=== PATIENT | female | born 1995 | race Caucasian/White ===

== ENCOUNTER 2017-05-06 08:10 | Day surgery (SDC) | payer BC ==
[~2017-05-06] VITALS: Ht 157.5 cm; Wt 62.0 kg
[2017-05-06] VITALS (15 sets, daily range): BP systolic 91–139; BP diastolic 58–86; PULSE 72–130; RESP 16–36; Ht 157.5 cm; Wt 62.0 kg
[2017-05-06] MEDS ORDERED: BUPIVACAINE 0.25%/EPI (SDV) 30 ML INJ ONE (09:19)
[2017-05-06] MEDS ORDERED: BACITRACIN/POLYMYXIN 28.35 GM OINT TOP ONE (09:20)
[2017-05-06] MEDS ORDERED: POLYMYXIN/BACITRACIN 1L IRRIG ONE (09:20)
[2017-05-06] MEDS ORDERED: LACTATED RINGER'S 1,000 ML IV SCH (09:30)
[2017-05-06] MEDS ORDERED: MIDAZOLAM 1 MG/ML 2 ML INJ ONE (10:32)
[2017-05-06] MEDS ORDERED: LIDOCAINE 2% (SDV) 5 ML INJ ONE (10:32)
[2017-05-06] MEDS ORDERED: PROPOFOL 20 ML ONE ×2 (10:32→11:05)
[2017-05-06] MEDS ORDERED: FENTAnyl 50 MCG/ML VIAL ONE (10:38)
[2017-05-06] MEDS ORDERED: CEFAZOLIN 1 GM INJ ONE (10:39)
[2017-05-06] MEDS ORDERED: BUPIVACAINE 0.5% (SDV) 30 ML INJ ONE (10:39)
[2017-05-06] MEDS ORDERED: ONDANSETRON 4 MG INJ ONE (10:45)
[2017-05-06] MEDS ORDERED: DEXAMETHASONE 4 MG/ML 1 ML INJ ONE (10:45)
[2017-05-06] MEDS ORDERED: PROCHLORPERAZINE 10 MG INJ IV PRN (11:00)
[2017-05-06] MEDS ORDERED: OXYCODONE/ACETAMINOPHEN (5/325) TAB PO PRN (11:00)
[2017-05-06] MEDS ORDERED: ONDANSETRON 4 MG INJ IV PRN (11:00)
[2017-05-06] MEDS ORDERED: DIPHENHYDRAMINE 50 MG INJ IV PRN (11:00)
[2017-05-06] MEDS ORDERED: FENTAnyl 50 MCG/ML VIAL IV PRN (11:00)
[2017-05-06] MEDS ORDERED: HYDROmorphONE (0.2 MG/ML) 10ML SYG IV PRN (11:00)
[2017-05-06] MEDS ORDERED: MEPERIDINE 25 MG INJ IV PRN (11:00)
--- NOTE | 2017-05-06 11:28 | HPN ---
Date/Time of Note Date/Time of Note DATE: 05/06/17 TIME: 11:27 Interval H&P Admission Note Pt. seen H&P reviewed: No system changes MARIZA MILAN MD May 06, 2017 11:28
[2017-05-06] MEDS ORDERED: morphine 2 MG INJ IV PRN (11:30)
[2017-05-06] MEDS ORDERED: KETOROLAC 30 MG INJ ONE (11:32)
--- NOTE | 2017-05-06 11:33 | OPR ---
Date/Time of Note Date/Time of Note DATE: 05/06/17 TIME: 11:30 Operative Report Procedure Date: May 06, 2017 Preoperative Diagnosis Left second toe flexible mallet toe Postoperative Diagnosis Left second toe flexible mallet toe Operation Performed Left second toe flexor tenotomy Surgeon: MARIZA MILAN MD Anesthesia: MAC, other (local block) Anesthesiologist: JIM HONG MD Tourniquet Time: None Estimated Blood Loss: minimal Complications: None Pt Condition Post Procedure: stable Disposition: PACU Indications Patient is a 21-year-old female who sustained a fracture of the left second dorsal aspect of the distal phalanx several years ago which healed in a mallet toe position. Patient attempted stretching exercises to obtain full extension of the toe however was able to achieve full extension and continue to have irritation and pain over the dorsum of the left second dorsal interphalangeal joint. The toe was in a flexible position and given the ongoing discomfort patient was having patient was indicated for a flexor tenotomy. Patient elected to proceed with this procedure and the operating room setting as opposed to the office setting. Operative\Procedure Findings Risk note: Patient was explained the risks and benefits of the surgery and the patient's modoc language including but not limited to infection, bleeding, injury to the blood vessels, nerves, ligaments and tendons. Patient was explained the risk of need for possible future surgery. Patient acknowledged these risk by signing surgical consent form. Procedure Description Patient was met in the preoperative holding area and the operative treatment he was marked and confirmed with the patient and consent. Patient was brought to the operative theater and placed supine on the operative table and given preoperative antibiotics and preoperative local digital block anesthesia with 0.5% Marcaine. Patient was then prepped and draped in the normal sterile fashion and a timeout was taken and all parties in the room agreed is correct patient, extremity and procedure. Incision was made on the plantar aspect of the distal interphalangeal joint with a #15 blade and flexor tendon was identified and tenotomized while bringing the toe into full extension at the DIP joint. Once the tendon was tenotomized the toe sat in a neutral position and the wound was irrigated thoroughly and 5-0 nylon suture was placed across the incision site. The toe was warm and well-perfused and pink at the end of the case. The wounds were dressed with Xeroform 4 x 4 and placed in an extended position and toes were again pink warm and well-perfused and foot was placed into a hard sole shoe. At the end of the case all sponge and needle counts were correct. Patient was brought to the PACU in stable condition. MARIZA MILAN MD May 06, 2017 11:33
--- NOTE | 2017-05-06 19:00 | RADRPT ---
PROCEDURE: Intraoperative imaging of the left foot with fluoroscopy. CLINICAL INDICATION: Left foot pain. Intraoperative. TECHNIQUE: 2 images of the left foot were obtained in the operating room with an image intensifier . No radiologist was in attendance. Fluoroscopy time is 30 seconds. COMPARISON: No prior study is available for comparison. FINDINGS: Images demonstrate surgical instruments overlying the left second toe. IMPRESSION: 1. Intraoperative imaging of the left foot. RPTAT: QQ .Joey Solorzano MD, MD Date Time Electronically viewed and signed by .Joey Solorzano MD, on 05/06/2017 19:00 .R/
== END 2017-05-06 13:10 | disposition home or self-care (01) ==
LOC: SDS 08:10
PROVIDERS: ATTEND Orthopaedic Surgery
DX: M20.5X2 Other deformities of toe(s) (acquired), left foot (principal)
CPT/HCPCS: 28232; 73620; 84703; J0690; J1100; J2250; J2405; J3010; J1885; L3260-LT